=== PATIENT | female | born 1970 | race Hispanic/Latino ===

== ENCOUNTER 2023-12-07 16:44 | Emergency (ER) | payer SELFPAY ==
[2023-12-07] MEDS ORDERED: predniSONE 20 MG TAB ONE (17:23)
[2023-12-07] MEDS ORDERED: Albuterol 2.5 MG (3 mL) NEB ONE (17:24)
== END 2023-12-07 18:40 | disposition home or self-care (01) ==
LOC: CSHERS 16:44
DX: T55.1X1A Toxic effect of detergents, accidental (unintentional), initial encounter (principal); J45.909 Unspecified asthma, uncomplicated
CPT/HCPCS: 71045; J7512; J7611

== ENCOUNTER 2023-12-08 13:46 | Emergency (ER) | payer SELFPAY, OTHER ==
[~2023-12-08 13:46] MED LIST: Iopamidol 300 61% 100 ML VIAL FS ONE
[2023-12-08 14:55] LABS: #Basophils 0.01 10x3/uL (0.0-0.2); #Monocytes 0.45 10x3/uL (0.0-1.1); #Neutrophils 9.44 10x3/uL (1.5-8.4); %Basophils 0.1 % (0.0-2.0); %Lymphocytes 8.1 % (18.0-47.0); %Monocytes 4.2 % (0.0-10.0); %Neutrophils 87.2 % (40.0-75.0); Hematocrit 39.6 % (34.9-44.5); Hemoglobin 13.6 g/dL (12.0-15.5); Mean Corpuscular HGB CONC 34.3 g/dL (32.0-36.0); Mean Corpuscular Hemoglobin 29.8 pg (27.0-33.0); Mean Corpuscular Volume 86.8 fl (81.6-98.3); Mean Platelet Volume 11.2 fl (7.4-10.4); Platelet Count 272 10x3/uL (150-450); RBC Distribution Width 14.3 % (11.5-14.5); Red Blood Cell (RBC) Count 4.56 10x6/uL (3.90-5.03); White Blood Cell (WBC) Count 10.8 10x3/uL (3.5-10.5)
[2023-12-08 15:14] LABS: ALT (SGPT) 29 U/L (8-55); AST (SGOT) 16 U/L (5-34); Albumin 3.8 g/dL (3.5-5.0); Alkaline Phosphatase 70 U/L (40-110); Anion Gap 15 mmol/L (10-20); BUN (Urea Nitrogen) 8 mg/dL (9.8-20.1); Bilirubin, Total 0.4 mg/dL (0.2-1.2); Calc. Creatinine Clearance 0 mL/min (70-130); Calcium 9.8 mg/dL (7.8-10.44); Carbon Dioxide 19 mmol/L (22-29); Chloride 108 mmol/L (98-107); Estimated GFR 74; Globulin 3.2 g/dL (2.4-3.5); Glucose 295 mg/dL (70-105); Potassium 4.8 mmol/L (3.5-5.1); Sodium 137 mmol/L (136-145)
[2023-12-08 15:21] LABS: Troponin I Less than 0.010 ng/mL (< 0.028)
[2023-12-08] MEDS ORDERED: Ketorolac Tromethamine 30 MG (1 mL) VIAL ONE (15:38)
== END 2023-12-08 15:54 | disposition home or self-care (01) ==
LOC: CSHERS 13:46
DX: T59.91XA Toxic effect of unspecified gases, fumes and vapors, accidental (unintentional), initial encounter (principal); J68.3 Other acute and subacute respiratory conditions due to chemicals, gases, fumes and vapors
CPT/HCPCS: 36415; 71045; 71260; 80053; 84484; 85025; 93005; 96374; J1885; Q9967